=== PATIENT | male | born 1950 | race Two or more races ===

== ENCOUNTER → 2017-02-08 | Outpatient (CLI) | payer MEDICARE, OTHER | END | disposition home or self-care (01) | LOC: RADPV 09:10 | PROVIDERS: ATTEND Internal Medicine Nephrology | DX: N40.0 Benign prostatic hyperplasia without lower urinary tract symptoms (principal) | CPT/HCPCS: 76770 ==

== ENCOUNTER → 2017-03-01 | Outpatient (CLI) | payer MEDICARE, OTHER ==
[2017-03-01 16:12] LABS: BASOPHILS # (AUTO) 0.05 K/uL (0.00-0.20); BASOPHILS % (AUTO) 0.9 % (0.0-2.0); EOSINOPHILS # (AUTO) 0.08 K/uL (0.00-0.70); HEMATOCRIT 45.6 % (41-53); HEMOGLOBIN 15.2 g/dL (13.5-17.5); LYMPHOCYTES # (AUTO) 1.5 K/uL (1.0-4.8); LYMPHOCYTES % (AUTO) 28.1 % (22.0-44.0); MEAN CORPUSCULAR HEMOGLOBIN 28.6 pg (26.0-34.0); MEAN CORPUSCULAR HGB CONC 33.3 G/dL (31.0-37.0); MEAN CORPUSCULAR VOLUME 86 fL (80-100); MONOCYTES # (AUTO) 0.4 K/uL (0.1-1.0); MONOCYTES % (AUTO) 7.8 % (2.0-9.0); NEUTROPHILS # (AUTO) 3.3 K/uL (1.8-7.7); NEUTROPHILS % (AUTO) 61.7 % (40.0-70.0); PLATELET COUNT (AUTO) 158 K/uL (150-450); RED CELL DISTRIBUTION WIDTH 14.2 % (11.5-14.5); WHITE BLOOD COUNT (AUTO) 5.4 K/uL (4.5-11.0)
[2017-03-01 16:18] LABS: APPEARANCE,URINE CLEAR (CLEAR); GLUCOSE, URINE (UA) 250 mg/dL (NEGATIVE); KETONES,URINE NEGATIVE (NEGATIVE); LEUKOCYTE ESTERASE ,URINE NEGATIVE (NEGATIVE); OCCULT BLOOD,URINE NEGATIVE (NEGATIVE); PH,URINE 7.5 (5.0-8.0); PROTEIN,URINE POS 1+ (NEGATIVE)
[2017-03-01 16:21] LABS: ADD UA MICROSCOPIC YES
[2017-03-01 16:38] LABS: ALBUMIN 3.7 g/dL (3.4-5.0); CALCIUM, TOTAL 8.9 mg/dL (8.8-10.5); CHOL/HDL RATIO 3.4 (4.2-7.3); CREATININE 1.23 mg/dL (0.60-1.30); PHOSPHORUS 2.8 mg/dL (2.5-4.9); POTASSIUM 4.3 mmol/L (3.5-5.1); THYROID STIMULATING HORMONE 0.9 uIU/mL (0.36-3.74)
[2017-03-01 16:41] LABS: RBC,URINE None Seen /HPF (0-2); WBC,URINE 0-2 /HPF (0-5)
[2017-03-01 17:02] LABS: HEMOGLOBIN A1C 9.5 % (4.5-6.2)
[2017-03-02 12:16] LABS: CREATININE, URINE (mALB) 123.5 mg/dL (Not Estab.)
== END | disposition home or self-care (01) ==
LOC: LABPV 13:50
PROVIDERS: ATTEND Internal Medicine Nephrology
DX: E11.22 Type 2 diabetes mellitus with diabetic chronic kidney disease (principal); N18.9 Chronic kidney disease, unspecified; E78.5 Hyperlipidemia, unspecified; D63.1 Anemia in chronic kidney disease; E55.9 Vitamin D deficiency, unspecified; R80.9 Proteinuria, unspecified
CPT/HCPCS: 81050; 82043; 82306; 82570; 82575; 83036; 83735; 84156; 84443

== ENCOUNTER → 2017-10-24 | Outpatient (CLI) | payer MEDICARE, OTHER ==
[2017-10-24 10:04] LABS: BASOPHILS % (AUTO) 0.6 % (0.0-2.0); EOSINOPHILS % (AUTO) 1.3 % (1.0-6.0); HEMATOCRIT 42.1 % (41-53); LYMPHOCYTES # (AUTO) 1.4 K/uL (1.0-4.8); LYMPHOCYTES % (AUTO) 20.1 % (22.0-44.0); MEAN CORPUSCULAR HEMOGLOBIN 29.6 pg (26.0-34.0); MEAN CORPUSCULAR HGB CONC 35.6 G/dL (31.0-37.0); MEAN CORPUSCULAR VOLUME 83 fL (80-100); MONOCYTES # (AUTO) 0.5 K/uL (0.1-1.0); MONOCYTES % (AUTO) 7.6 % (2.0-9.0); NEUTROPHILS # (AUTO) 4.8 K/uL (1.8-7.7); NEUTROPHILS % (AUTO) 70.4 % (40.0-70.0); PLATELET COUNT (AUTO) 194 K/uL (150-450); RED BLOOD CELL COUNT(AUTO) 5.06 MIL/uL (4.50-5.90); RED CELL DISTRIBUTION WIDTH 14.4 % (11.5-14.5)
[2017-10-24 10:10] LABS: APPEARANCE,URINE CLEAR (CLEAR); BILIRUBIN,URINE NEGATIVE (NEGATIVE); GLUCOSE, URINE (UA) NEGATIVE (NEGATIVE); KETONES,URINE NEGATIVE (NEGATIVE); LEUKOCYTE ESTERASE ,URINE NEGATIVE (NEGATIVE); NITRATE,URINE NEGATIVE (NEGATIVE); OCCULT BLOOD,URINE NEGATIVE (NEGATIVE); PH,URINE 5.5 (5.0-8.0); PROTEIN,URINE SEE CONFIRM (NEGATIVE)
[2017-10-24 10:18] LABS: HEMOGLOBIN A1C 7.2 % (4.5-6.2)
[2017-10-24 10:25] LABS: SULFOSALICYLIC ACID,URINE Trace (Negative)
[2017-10-24 10:26] LABS: ALBUMIN 3.6 g/dL (3.4-5.0); CHOL/HDL RATIO 2.6 (4.2-7.3); CREATININE 1.36 mg/dL (0.60-1.30); MAGNESIUM 2.1 mg/dL (1.80-2.40); PHOSPHORUS 3.6 mg/dL (2.5-4.9); POTASSIUM 4.1 mmol/L (3.5-5.1)
[2017-10-24 10:27] LABS: BACTERIA,URINE None Seen /HPF (None Seen); RBC,URINE None Seen /HPF (0-2); SQUAMOUS EPITHELIAL CELL,UR Few /LPF (None Seen); WBC,URINE None Seen /HPF (0-5)
[2017-10-24 10:34] LABS: PROTEIN,URINE RANDOM 68 mg/dL (0-11.9)
== END | disposition home or self-care (01) ==
LOC: LABPV 07:30
PROVIDERS: ATTEND Internal Medicine Nephrology
DX: E11.22 Type 2 diabetes mellitus with diabetic chronic kidney disease (principal); N18.3 Chronic kidney disease, stage 3 (moderate); D63.1 Anemia in chronic kidney disease; E78.5 Hyperlipidemia, unspecified; E55.9 Vitamin D deficiency, unspecified; R80.9 Proteinuria, unspecified
CPT/HCPCS: 82043; 82306; 82570; 83036; 83735; 83970; 84156

== ENCOUNTER 2019-09-27 08:51 | Inpatient (IN) | payer MEDICARE, MEDICAID ==
[~2019-09-27] VITALS: Ht 177.8 cm; Wt 74.2 kg
[2019-09-27 09:34] LABS: BASOPHILS % (AUTO) 1.2 % (0.0-2.0); HEMATOCRIT 38.9 % (41-53); LYMPHOCYTES # (AUTO) 1.3 K/uL (1.0-4.8); LYMPHOCYTES % (AUTO) 28.9 % (22.0-44.0); MEAN CORPUSCULAR HEMOGLOBIN 27.6 pg (26.0-34.0); MEAN CORPUSCULAR HGB CONC 33.5 G/dL (31.0-37.0); MEAN CORPUSCULAR VOLUME 83 fL (80-100); MONOCYTES # (AUTO) 0.5 K/uL (0.1-1.0); MONOCYTES % (AUTO) 10.8 % (2.0-9.0); NEUTROPHILS # (AUTO) 2.6 K/uL (1.8-7.7); NEUTROPHILS % (AUTO) 57.1 % (40.0-70.0); PLATELET COUNT (AUTO) 124 K/uL (150-450); RED BLOOD CELL COUNT(AUTO) 4.72 MIL/uL (4.50-5.90)
[2019-09-27 09:38] LABS: ANION GAP 4 mmol/L (8-16); CARBON DIOXIDE 30 mmol/L (22-29); CHLORIDE 107 mmol/L (98-107); CREATININE 1.02 mg/dL (0.60-1.30); GLOMERULAR FILTR. RATE CALC > 60 mL/min (>60); GLUCOSE,RANDOM 196 mg/dL (70-110); SODIUM SERUM 141 mmol/L (136-145); UREA NITROGEN, BLOOD 21 mg/dL (7-18)
[2019-09-27 09:44] LABS: ALANINE AMINOTRANSFERASE 13 U/L (12-78); ALBUMIN 3.6 g/dL (3.4-5.0); ALKALINE PHOSPHATASE 120 U/L (46-116); ASPARTATE AMINOTRANSFERASE 11 U/L (15-37); BILIRUBIN,TOTAL 0.5 mg/dL (0.1-1.0); TOTAL PROTEIN, SERUM 7.1 g/dL (6.4-8.2)
[2019-09-27] MEDS ORDERED: ATORVASTATIN CALCIUM 40 MG TABLET PO SCH (10:00)
[2019-09-27] MEDS ORDERED: ASPIRIN 325 MG TABLET PO SCH (10:00)
[2019-09-27] MEDS ORDERED: AmLODIPine BESYLATE 10 MG TABLET PO SCH (10:00)
[2019-09-27] MEDS ORDERED: HydrALAZINE HCL 20 MG/ML VIAL IVP ONE (10:00)
[2019-09-27] MEDS ORDERED: DEXTROSE 50%-WATER 25 GM/50 ML SYRINGE IVP PRN (10:15)
[2019-09-27] MEDS ORDERED: MAGNESIUM HYDROXIDE SUSPENSION 30 ML UDCUP PO PRN (10:15)
[2019-09-27] MEDS ORDERED: ACETAMINOPHEN 325 MG TABLET PO PRN (10:15)
[2019-09-27] MEDS ORDERED: AmLODIPine BESYLATE 5 MG TABLET PO SCH (11:30)
[2019-09-27] MEDS: ASPIRIN 325 MG TABLET PO SCH (11:49)
[2019-09-27] MEDS: ATORVASTATIN CALCIUM 40 MG TABLET PO SCH (11:50)
[2019-09-27] MEDS: AmLODIPine BESYLATE 10 MG TABLET PO SCH (11:59)
[2019-09-27 14:05] VITALS: BP 149/68
[2019-09-27] MEDS: HEPARIN SODIUM,PORCINE 5,000 UNITS/ML VIAL SQ SCH (15:53)
[2019-09-27 17:13] VITALS: BP 150/75
[2019-09-27 19:55] VITALS: BP 148/72
[2019-09-27 20:26] LABS: GLUCOMETER DEV NAME(LOC) 5N.3; GLUCOSE,POINT OF CARE 99 MG/DL (70-110)
[2019-09-27] MEDS: DOCUSATE SODIUM 100 MG CAPSULE PO SCH (21:00)
[2019-09-27] MEDS: INSULIN LISPRO 100 UNITS/ML SQ PRN (22:06)
[2019-09-27 23:20] VITALS: BP 133/64
[2019-09-28 04:45] VITALS: BP_SYST 118; BP_SYST 150; BP_DIAS 61; BP_DIAS 74
[2019-09-28 06:02] LABS: GLUCOMETER DEV NAME(LOC) 5N.3; GLUCOSE,POINT OF CARE 178 MG/DL (70-110)
[2019-09-28 07:35] VITALS: BP 150/72
[2019-09-28] MEDS: DOCUSATE SODIUM 100 MG CAPSULE PO SCH ×2 (10:49→20:43)
[2019-09-28] MEDS: AmLODIPine BESYLATE 10 MG TABLET PO SCH (10:49)
[2019-09-28] MEDS: ATORVASTATIN CALCIUM 40 MG TABLET PO SCH (10:49)
[2019-09-28] MEDS: ASPIRIN 325 MG TABLET PO SCH (10:49)
[2019-09-28] MEDS: HEPARIN SODIUM,PORCINE 5,000 UNITS/ML VIAL SQ SCH ×3 (10:49→15:33)
[2019-09-28] MEDS: FAMOTIDINE 20 MG TABLET PO SCH (10:50)
[2019-09-28 11:21] VITALS: BP 135/67
[2019-09-28] MEDS: INSULIN LISPRO 100 UNITS/ML SQ PRN ×2 (12:16→20:43)
[2019-09-28 12:35] LABS: CHOL/HDL RATIO 3.2 (4.2-7.3)
[2019-09-28 13:41] LABS: GLUCOMETER DEV NAME(LOC) 5N.3; GLUCOSE,POINT OF CARE 120 MG/DL (70-110)
[2019-09-28 13:41] LABS: GLUCOMETER DEV NAME(LOC) 5N.3; GLUCOSE,POINT OF CARE 179 MG/DL (70-110)
[2019-09-28 15:23] VITALS: BP 152/82
[2019-09-28 19:57] VITALS: BP 151/66
[2019-09-28 20:37] LABS: GLUCOMETER DEV NAME(LOC) 5N.3; GLUCOSE,POINT OF CARE 133 MG/DL (70-110)
[2019-09-28 23:20] VITALS: BP 143/64
[2019-09-29] MEDS: HEPARIN SODIUM,PORCINE 5,000 UNITS/ML VIAL SQ SCH ×4 (00:48→23:16)
[2019-09-29 05:22] VITALS: BP 141/76
[2019-09-29 06:15] LABS: GLUCOMETER DEV NAME(LOC) 5N.3; GLUCOSE,POINT OF CARE 211 MG/DL (70-110)
[2019-09-29 07:22] VITALS: BP 144/76
[2019-09-29] MEDS: AmLODIPine BESYLATE 10 MG TABLET PO SCH (09:18)
[2019-09-29] MEDS: ASPIRIN 81 MG CHEWABLE TABLET PO SCH (09:18)
[2019-09-29] MEDS: DOCUSATE SODIUM 100 MG CAPSULE PO SCH ×2 (09:18→20:22)
[2019-09-29] MEDS: ATORVASTATIN CALCIUM 40 MG TABLET PO SCH (09:18)
[2019-09-29] MEDS: FAMOTIDINE 20 MG TABLET PO SCH (09:18)
[2019-09-29 11:05] VITALS: BP 130/77
[2019-09-29 15:25] VITALS: BP 135/78
[2019-09-29] MEDS: GlipiZIDE 5 MG TABLET PO SCH (16:27)
[2019-09-29 17:18] LABS: GLUCOMETER DEV NAME(LOC) 5S.2A; GLUCOSE,POINT OF CARE 126 MG/DL (70-110)
[2019-09-29] MEDS: INSULIN LISPRO 100 UNITS/ML SQ PRN (20:34)
[2019-09-29 20:35] VITALS: BP 139/72
[2019-09-29 23:47] LABS: GLUCOMETER DEV NAME(LOC) 5S.2A; GLUCOSE,POINT OF CARE 219 MG/DL (70-110)
[2019-09-30 00:05] VITALS: BP 127/54
[2019-09-30 00:06] LABS: GLUCOMETER DEV NAME(LOC) 5N.3; GLUCOSE,POINT OF CARE 124 MG/DL (70-110)
[2019-09-30 00:07] LABS: GLUCOMETER DEV NAME(LOC) 5N.3; GLUCOSE,POINT OF CARE 157 MG/DL (70-110)
[2019-09-30 04:37] VITALS: BP 132/68
[2019-09-30] MEDS: GlipiZIDE 5 MG TABLET PO SCH (06:06)
[2019-09-30 08:00] VITALS: BP 142/72
[2019-09-30] MEDS: FAMOTIDINE 20 MG TABLET PO SCH (09:27)
[2019-09-30] MEDS: HEPARIN SODIUM,PORCINE 5,000 UNITS/ML VIAL SQ SCH (09:27)
[2019-09-30] MEDS: ATORVASTATIN CALCIUM 40 MG TABLET PO SCH (09:28)
[2019-09-30] MEDS: AmLODIPine BESYLATE 10 MG TABLET PO SCH (09:28)
[2019-09-30] MEDS: DOCUSATE SODIUM 100 MG CAPSULE PO SCH (09:28)
[2019-09-30] MEDS: ASPIRIN 81 MG CHEWABLE TABLET PO SCH (09:28)
[2019-09-30] MEDS ORDERED: ASPI-728 PO (09:52)
[2019-09-30] MEDS ORDERED: GLIP2.5ER PO (09:52)
[2019-09-30] MEDS ORDERED: ATOR40TA28 PO (09:52)
[2019-09-30] MEDS ORDERED: AMLO10TA7 PO (09:53)
[2019-09-30 12:12] LABS: GLUCOMETER DEV NAME(LOC) 5S.1; GLUCOSE,POINT OF CARE 145 MG/DL (70-110)
[2019-09-30 23:24] VITALS: BP 182/94
== END 2019-09-30 11:00 | disposition home health service (06) | DRG 65 ==
LOC: EMS 08:54 → 5N 10:03 → 5S 09-29 13:40
PROVIDERS: ADMIT Internal Medicine; ATTEND Internal Medicine
DX: I63.9 Cerebral infarction, unspecified (principal); E44.0 Moderate protein-calorie malnutrition; I10 Essential (primary) hypertension; E11.9 Type 2 diabetes mellitus without complications; Z20.828 Contact with and (suspected) exposure to other viral communicable diseases; Z83.3 Family history of diabetes mellitus; Z68.23 Body mass index [BMI] 23.0-23.9, adult
CPT/HCPCS: 70450; 70551; 82948; 92610; 93005; 93306; 93880; 97116; 97162; 97165; 97530; 97535; J0360; J1644